=== PATIENT | male | born 1980 | race Caucasian/White ===

== ENCOUNTER 2022-09-03 08:23 | Day surgery (SDC) | payer BC ==
[2022-09-03] MEDS ORDERED: Ringers Lactate 1,000 ML IV ONE (08:43)
[2022-09-03] MEDS ORDERED: CEFAZOLIN SODIUM 1 GM/VIAL ONE (08:43)
[2022-09-03] MEDS ORDERED: propofoL 200 MG/20 ML VIAL IV ONE (09:50)
[2022-09-03] MEDS ORDERED: FENTANYL CITR 100 MCG/2 ML ONE ×2 (09:50→11:58)
[2022-09-03] MEDS ORDERED: MIDAZOLAM HCL 2 MG/2 ML INJ ONE (09:50)
[2022-09-03] MEDS ORDERED: LIDOCAINE 2% MPF 5 ML VIAL ONE (09:51)
[2022-09-03] MEDS ORDERED: ROCURONIUM 50 MG/5 ML VIAL IV ONE (09:51)
[2022-09-03] MEDS ORDERED: dexAMETHasone 10 MG/ML VIAL ONE (09:51)
[2022-09-03] MEDS ORDERED: ONDANSETRON 4 MG/2 ML VIAL ONE ×2 (09:51→13:58)
[2022-09-03] MEDS ORDERED: NA CHLORIDE 0.9% 500 ML ONE (10:48)
[2022-09-03] MEDS ORDERED: BACITRACIN OINTMENT 14 GM TUBE TOP ONE ×2 (10:48→11:54)
[2022-09-03] MEDS ORDERED: LIDOCAINE 1.5% W/EPI AMP 5 ML ONE (10:48)
[2022-09-03] MEDS ORDERED: LIDOCAINE 1% 20 ML MDV ONE (10:50)
[2022-09-03] MEDS ORDERED: OXYMETAZOLINE HCL 0.05% 15ML NAS ONE (10:55)
[2022-09-03] MEDS: HYDROMORPHONE HCL 1 MG/ML INJ ONE ×2 (13:04→13:09)
[2022-09-03 13:32] VITALS: TEMP 97
[2022-09-03] MEDS ORDERED: HYDROCODONE/APAP 10/325 TAB ONE (14:31)
[2022-09-03 15:32] VITALS: BP 139/79; O2SAT 98
--- NOTE | 2022-09-04 12:09 | OP ---
Date of Procedure: 09/03/2022 Surgeon: JONNATHAN DELANEY Primary Care Physician: Unknown. Preoperative Diagnoses: 1.Bilateral nasal septal deviation. 2.Bilateral nasal valve collapse. 3.Bilateral inferior turbinate hypertrophy. Postoperative Diagnoses: 1.Bilateral nasal septal deviation. 2.Bilateral nasal valve collapse. 3.Bilateral inferior turbinate hypertrophy. Procedures: 1.Bilateral diagnostic nasal endoscopy. 2.Endoscopic septoplasty. 3.Bilateral submucous resection of inferior turbinates. 4.Bilateral destruction of intranasal lesion. CPT code 81414. Anesthesia: General endotracheal anesthesia was administered. I also infiltrated approximately 10 m L of 1.5% lidocaine with 1:200,000 epinephrine at bilateral nasal septal mucosa, bilateral anterior f princess of inferior turbinate mucosa. I also infiltrated a small amount bilateral nasal vestibular mucos a at the nasal valve area. Estimated Blood Loss: Less than 10 mL. Specimens: Bony cartilaginous septum was submitted. Findings: Bilateral moderate nasal septal deviation noted mostly posteriorly. The patient had moder ate to severe bilateral nasal valve collapse and significant 3/4 bilateral inferior turbinate hypertr ophy. Complications: None. Disposition: Stable. The patient tolerated the procedure well. Indications For Procedure: The patient is a pleasant 41-year-old male who presented to my outpatient clinic with chronic bilateral nasal obstruction resulting in snoring and possible sleep apnea. He h ad chronic mouth breathing and significant sleep disturbance associated with his breathing. These we re indications to bring the patient to operative suite, as we have tried multiple medications includi ng nasal corticosteroid sprays, decongestants, and his condition has been refractory to outpatient nj dical therapy. Description Of Procedure: The patient was transferred from the preoperative holding area to the oper ative suite by Department of Anesthesia, placed on the operating room table supine, sedated and intub ated in normal fashion. The table was rotated 180 degrees and a head rest was placed. I infiltrated approximately 10 mL of 1.5% lidocaine with 1:200,000 epinephrine at the area of the incisions for th e nasal septum and inferior turbinates and nasal valves. Afrin-soaked nasal pledgets were introduced in bilateral nasal cavities for vasoconstriction and deco ngestion. The patient was then sterilely prepped and draped. I removed the Afrin-soaked nasal pledgets and examined bilateral nasal cavities utilizing a 0-degree rigid nasal endoscope. I advanced along the floor of bilateral nasal cavities and it was very obstru cted nasal septum, was much more deviated than what I could appreciate in the clinic setting. Thus, I decided to start with the septoplasty. We made a modified Romulo incision into the left nasal septal mucosa down to the cartilaginous and b eh septum. I then elevated the flap utilizing a [place] elevator and then once I was able to elevate the flap completely posteriorly, I then made a crossover incision with a septum knife. I then elevat ed the right mucosal flap isolating any cartilaginous and bony septum. I then placed a longer nasal speculum to get better visualization posteriorly, and then, I removed the obstructive cartilage and b one utilizing a septal knife and Kristofer forceps. Once the obstructive cartilage and bone were rem rozina, I reapproximated the mucosal flaps with 4-0 plain gut suture on a straight Rigo needle. Next, my attention was placed to the inferior turbinates, whereby incisions were made at the anterior face of the mucosa with the Coblation wand, and then, I was able to perform submucous resection of b ilateral inferior turbinates utilizing the Coblation wand. I then cauterized the mucosal edges on a setting of 3 for coagulation. Next, I touched the Coblation wand at 3 separate areas of the nasal valves on a setting of 5 for abla tion and 3 for coagulation to remodel bilateral nasal valves and hopefully open up his internal nasal valve, so that he could breathe. I then inserted PosiSep coated in antibiotic ointment and this was sutured at the caudal septum with a 4-0 chromic gut suture. I also placed a mustache dressing. He tolerated the procedure well and will be discharged home on analgesic medication as well as topical a nd oral antibiotics and follow up in 1-2 weeks or sooner if needed. TELLO/MEGGAN Voice ID: [id number] Report ID: [id number]
== END 2022-09-03 15:03 | disposition home or self-care (01) ==
LOC: OR 08:23
PROVIDERS: ATTEND Otolaryngology Facial Plastic Surgery
PROC: 09BM8ZZ Excision of Nasal Septum, Via Natural or Artificial Opening Endoscopic (ICD-10-PCS; 2022-09-03)
PROC: 095K8ZZ Destruction of Nasal Mucosa and Soft Tissue, Via Natural or Artificial Opening Endoscopic (ICD-10-PCS; 2022-09-03)
PROC: 09JY8ZZ Inspection of Sinus, Via Natural or Artificial Opening Endoscopic (ICD-10-PCS; 2022-09-03)
PROC: 09TL8ZZ Resection of Nasal Turbinate, Via Natural or Artificial Opening Endoscopic (ICD-10-PCS; principal; 2022-09-03 09:45)
DX: J34.3 Hypertrophy of nasal turbinates (principal); J34.89 Other specified disorders of nose and nasal sinuses; J34.2 Deviated nasal septum; M95.0 Acquired deformity of nose
CPT/HCPCS: 30140; 30520; 31231; 30117; J2704; J2001; J2250; J3010 ×2; J1100; J1170; J7120; J7040; J2405 ×2; J0690